=== PATIENT | female | born 1995 | race Caucasian/White ===

== ENCOUNTER → 2019-08-15 | Outpatient (CLI) | payer OTHER ==
--- NOTE | 2019-08-22 00:11 | PFR/MVV ---
[facility] [place] [address] PULMONARY FUNCTION MVV/REPORT Name: HARSH RABAGO Room #: [facility] Danish.#: [id number] Admission: 08/15/19 Attend Phys: Bladimir Chopra MD Discharge: Date of : 89 Report #: [id number] THIS REPORT FOR: //name// >> SPIROMETRY: (BTPS) Height: 64 in cm Weight: 180 lbs kg Exam Date: 08/15/19 PRE-RX POST-RX PRED BEST %PRED BEST %PRED %CHG FVC LITERS . 3.88 . 3.95 . 102 . 4.08 . 105 . 3 FEV1 LITERS . 3.11 . 3.36 . 108 . 3.50 . 112 . 4 FEV1/FVC % . 80 . 85 . 107 . 86 . 108 . 1 LDN84-80% L/Sec . 3.61 . 3.34 . 91 . 4.16 . 115 . 25 PEF L/SEC . 6.58 . 8.63 . 131 . 7.68 . 117 . -11 FEF50/FIF50 UNITLESS . <1.00 . 1.53 . . 2.58 . . 69 MVV L/Min . 118 . 71 . 60 f 1/Min . . 160 . >> LUNG VOLUMES: (BTPS) PRE-RX POST-RX PRED AVG %PRED AVG %PRED %CHG VC Liters . 3.88 . 4.43 . 114 . . . TLC Liters . 5.17 . 5.16 . 100 . . . RV Liters . 1.54 . 0.73 . 48 . . . RV/TLC % . 29 . 14 . 50 . . . FRC PL Liters . 2.51 . 1.92 . 76 . . . FRC N2 Liters . 2.51 . . . . . ERV Liters . 1.27 . 1.18 . 93 . . . IC Liters . 2.54 . 3.13 . 123 . . . >> DIFFUSION: DLCO ml/Min/mmHg . 26.5 . 21.5 . 81 . . . DL Raul ml/Min/mmHg . 26.5 . 21.5 . 81 . . . DLCO/VA ml/Min/mmHg . 4.63 . 5.56 . 120 . . . VA Liters . . 3.87 . . . . COMMENTS: COMMENTS: >> RESISTANCE: [facility] [address] [place] [address] PULMONARY FUNCTION MVV/REPORT Name: HARSH RABAGO Room #: [facility].#: [id number] Admission: 08/15/19 Attend Phys: Bladimir Chopra MD Discharge: Date of : 89 Report #: [id number] PRE-RX PRED AVG %PRED Raw Total cmH20/L/Sec . . 4.82 . Raw Insp cmH20/L/Sec . . 8.15 . Raw Exp cmH20/L/Sec . . 6.05 . Raw cmH20/L/Sec . 1.54 . 1.90 . 123 Gaw L/Sec/cmH20 . 0.603 . 0.527 . 87 sRaw cmH20 Sec . 3.87 . 4.45 . 115 sGaw l/cmH20 Sec . 0.259 . 0.225 . 87 Vtq Liters . . 2.35 . # = OUTSIDE 95% CONFIDENCE INTERVAL CALIBRATION: PRED: 3.00 ACTUAL: EXP 3.01 INSP 3.02 [facility]- [facility]- [id number] >> INTERPRETATION/IMPRESSION: CC: Bladimir MCALLISTER physician/PCP SPIROMETRY: FEV1 is 3.36 liters (108%). FVC is 3.95 liters (102%). FEV1/FVC ratio is 85%. Post-bronchodilator response with no significant response. LUNG VOLUMES: Total lung capacity is 5.16 liters (100%). Diffusing capacity is 81%. IMPRESSION: Pulmonary function studies are consistent with normal pulmonary function. <ELECTRONICALLY SIGNED> By: Dewey Marion MD 08/22/19 0011 Dewey Marion MD /nt
== END ==
LOC: RAD 09:21
DX: A15.9 Respiratory tuberculosis unspecified (principal); Z90.2 Acquired absence of lung [part of]